=== PATIENT | female | born 1960 | race American Indian/Alaskan Native ===

== ENCOUNTER 2016-09-24 11:34 | Observation (INO) | payer BC ==
[2016-09-24 11:46] VITALS: BMI 40.6
--- NOTE | 2016-09-24 12:15 | C.PDOC ---
History Of Present Illness 56 year old patient, with a past medical history of hypertension, hypercholesterolemia, morbid obesity, and diabetes, presents to the ED complaining of chest pain that began earlier at work today. The pain is sharp and radiating to her left arm. Patient has a remote history of negative stress test. Patient denies fever, nausea, vomiting, shortness of breath, palpitations , numbness, weakness, or any other complaints. Time Seen by Provider: 09/24/16 11:52 Chief Complaint (Nursing): Chest Pain History Per: Patient History/Exam Limitations: no limitations Onset/Duration Of Symptoms: Hrs (this morning) Current Symptoms Are (Timing): Still Present Context: Other Severity: Mild Pain Scale Rating Of: 3 Quality: Sharp, "Pain" Modifying Factors: None Exacerbating Factors: None Alleviating Factors: None Recent travel outside of the [place]: No Past Medical History Reviewed: Historical Data, Nursing Documentation, Vital Signs Vital Signs: Last Vital Signs Temp 98.0 F 09/24/16 11:49 Pulse 78 09/24/16 11:49 Resp 20 09/24/16 11:49 BP 119/73 09/24/16 11:49 Pulse Ox 97 09/24/16 13:19 - Medical History PMH: HTN, Hypercholesterolemia Surgical History: Tonsillectomy Family History: States: Unknown Family Hx - Social History Hx Alcohol Use: Yes Hx Substance Use: No - Immunization History Hx Tetanus Toxoid Vaccination: No Hx Influenza Vaccination: Yes Hx Pneumococcal Vaccination: Yes Review Of Systems Except As Marked, All Systems Reviewed And Found Negative. Constitutional: Negative for: Fever Cardiovascular: Positive for: Chest Pain (radiating to left arm) Respiratory: Negative for: Shortness of Breath Gastrointestinal: Negative for: Nausea, Vomiting Neurological: Negative for: Weakness, Numbness Physical Exam - Physical Exam Appears: Non-toxic, No Acute Distress Skin: Warm, Dry Head: Atraumatic, Normacephalic Eye(s): bilateral: Normal Inspection, PERRL, EOMI Oral Mucosa: Moist Neck: Normal ROM, Supple Chest: Symmetrical, No Tenderness Cardiovascular: Rhythm Regular Respiratory: Normal Breath Sounds, No Rales, No Rhonchi, No Wheezing Gastrointestinal/Abdominal: Soft, No Tenderness, Other (morbidly obese) Back: Normal Inspection, No CVA Tenderness Extremity: Normal ROM Neurological/Psych: Oriented x3, Normal Speech, Normal Cognition, Normal Motor, Normal Sensation Gait: Steady ED Course And Treatment - Laboratory Results Result Diagrams: 09/24/16 12:23 09/24/16 12:23 O2 Sat by Pulse Oximetry: 97 (room air) Pulse Ox Interpretation: Normal - Other Rad chest x-ray X-Ray: Read By Radiologist (Shyam Jerome MD) Interpretation: PROCEDURE: CHEST RADIOGRAPH, 1 VIEW. HISTORY: chest pain. COMPARISON: None available. FINDINGS: LUNGS: Mild venous congestion. PLEURA : No pneumothorax or pleural fluid seen. CARDIOVASCULAR: Cardiomegaly. OSSEOUS STRUCTURES: No significant abnormalities. VISUALIZED UPPER ABDOMEN: Normal. OTHER FINDINGS: None. IMPRESSION: Mild venous congestion with cardiomegaly. Medical Decision Making Medical Decision Making: Impression: 56 y/o female with chest pain Plan: * EKG * Labs * Chest x-ray Progress: EKG (interpreted and viewed by me) Sinus Rhythm [address]-T wave changes Disposition - Disposition Disposition: HOSPITALIZED Disposition Time: 13:19 Condition: STABLE - Clinical Impression Clinical Impression: Chest pain - Scribe Statement The provider has reviewed the documentation as recorded by the Scribnicolasa Hope Provider Attestation: All medical record entries made by the Scribe were at my direction and personally dictated by me. I have reviewed the chart and agree that the record accurately reflects my personal performance of the history, physical exam, medical decision making, and the department course for this patient. I have also personally directed, reviewed, and agree with the discharge instructions and disposition. Decision To Admit - Pt Status Changed To: Hospital Disposition Of: Observation - . Bed Request Type: Telemetry Admitting Physician: Ivan Finney Patient Diagnosis: Chest pain
[2016-09-24 12:38] LABS: BASO # 0.1 K/uL (0.0-0.2); BASO % 0.8 % (0.0-2.0); EOS # 0.2 K/uL (0.0-0.7); EOS % 2.7 % (0.0-4.0); HEMATOCRIT 37.2 % (34.0-47.0); LYMPH # 2.3 K/uL (1.0-4.3); LYMPH % 29.9 % (20.0-40.0); MEAN CELL VOLUME 76.2 fL (81.0-99.0); MEAN CORPUSCULAR HEMOGLOBIN 24.8 pg (27.0-31.0); MEAN CORPUSCULAR HGB CONC 32.5 g/dL (33.0-37.0); MEAN PLATELET VOLUME 8.9 fL (7.2-11.7); MONO # 0.6 K/uL (0.0-0.8); MONO % 7.5 % (0.0-10.0); RED CELL DISTRIBUTION WIDTH 16.4 % (11.5-14.5); WHITE BLOOD COUNT 7.8 K/uL (4.8-10.8)
--- NOTE | 2016-09-24 12:44 | RAD ---
PROCEDURE: CHEST RADIOGRAPH, 1 VIEW HISTORY: chest pain COMPARISON: None available. FINDINGS: LUNGS: Mild venous congestion. PLEURA: No pneumothorax or pleural fluid seen. CARDIOVASCULAR: Cardiomegaly. OSSEOUS STRUCTURES: No significant abnormalities. VISUALIZED UPPER ABDOMEN: Normal. OTHER FINDINGS: None. IMPRESSION: Mild venous congestion with cardiomegaly.
[2016-09-24 12:45] LABS: CHLORIDE 101 mmol/L (98-107); INR 0.9; POTASSIUM 4.1 mmol/L (3.6-5.2); SODIUM 138 mmol/L (132-148)
[2016-09-24 12:47] LABS: AST/SGOT 25 U/L (14-36); BILIRUBIN,TOTAL 0.6 mg/dL (0.2-1.3); CARBON DIOXIDE 25 mmol/L (22-30); GFR AFRICAN-AMERICAN > 60
[2016-09-24 12:48] LABS: ALB/GLOB RATIO 1.3 (1.0-2.1); ALKALINE PHOSPHATASE 78 U/L (38-126); ALT/SGPT 26 U/L (9-52); BLOOD UREA NITROGEN 16 mg/dL (7-17); CALCIUM 9.2 mg/dl (8.6-10.4); GLUCOSE,RANDOM 196 mg/dL (65-105); TOTAL PROTEIN 7.7 g/dL (6.3-8.3)
[2016-09-24 14:13] LABS: RBC URINE 9 /hpf (0-3); URINE BACTERIA RARE (<OCC); URINE BILIRUBIN NEGATIVE (NEGATIVE); URINE BLOOD NEGATIVE (NEGATIVE); URINE COLOR Yellow (YELLOW); URINE GLUCOSE (UA) NORMAL (Normal); URINE KETONE NEGATIVE (NEGATIVE); URINE LEUKOCYTE ESTERASE 2+ Leu/uL (Negative); URINE PROTEIN NEGATIVE (NEGATIVE); URINE UROBILINOGEN NORMAL mg/dL (0.2-1.0); WBC URINE 3 /hpf (0-5)
[2016-09-24] MEDS: (Novolog) Insulin Aspart, Recombinant 100 u/ml 10 ml vial SC SCH ×2 (17:12→22:24)
--- NOTE | 2016-09-24 18:33 | CP.PCM.CON ---
History of Present Illness - History of Present Illness History of Present Illness: 56 year old lady with DM, HTN, Mixed hyperlipidemia, presented with atypical CP , no EKG changes, so far neg enz. observe unlikely PE or dissection clinically Review of Systems - Constitutional Constitutional: Weakness - EENT Eyes: absent: Discharge Ears: absent: Ear Discharge, Dizziness Nose/Mouth/Throat: absent: Epistaxis - Cardiovascular Cardiovascular: Chest Pain. absent: Acrocyanosis, Diaphoresis, Leg Edema, Palpitations, Syncope - Respiratory Respiratory: absent: Cough, Dyspnea, Hemoptysis - Gastrointestinal Gastrointestinal: absent: Abdominal Pain, Diarrhea, Vomiting - Genitourinary Genitourinary: absent: Change in Urinary Stream Past Patient History - Past Social History Smoking Status: Never Smoked - CARDIAC Hx Hypercholesterolemia: Yes Hx Hypertension: Yes - ENDOCRINE/METABOLIC Hx Diabetes Mellitus Type 2: Yes - GASTROINTESTINAL Hx Gastroesophageal Reflux: Yes - PSYCHIATRIC Hx Substance Use: No - SURGICAL HISTORY Hx Tonsillectomy: Yes - ANESTHESIA Hx Anesthesia: Yes Hx Anesthesia Reactions: No Meds Allergies/Adverse Reactions: Allergies Allergy/AdvReac Type Severity Reaction Status Date / Time No Known Allergies Allergy Verified 09/24/16 11:50 - Medications Medications: Current Medications Amlodipine Besylate (Norvasc) 10 mg PO DAILY [facility] Aspirin (Ecotrin) 81 mg PO DAILY [facility] Last Admin: 09/24/16 17:58 Dose: 81 mg Enoxaparin Sodium (Lovenox) 40 mg SC DAILY [facility] Insulin Aspart (Novolog) 0 unit SC ACHS [facility] PRN Reason: Protocol Last Admin: 09/24/16 17:12 Dose: Not Given Lisinopril (Zestril) 20 mg PO DAILY [facility] Last Admin: 09/24/16 17:58 Dose: 20 mg Metformin HCl (Glucophage) 500 mg PO BID [facility] Last Admin: 09/24/16 17:59 Dose: 500 mg Rosuvastatin Calcium (Crestor) 20 mg PO [facility] Physical Exam - Constitutional Appears: Non-toxic - Head Exam Head Exam: ATRAUMATIC - Eye Exam Eye Exam: EOMI - ENT Exam ENT Exam: Mucous Membranes Moist - Neck Exam Neck exam: Negative for: Lymphadenopathy, Thyromegaly - Respiratory Exam Respiratory Exam: Clear to Auscultation Bilateral. absent: Rales - Cardiovascular Exam Cardiovascular Exam: REGULAR RHYTHM. absent: Systolic Murmur - GI/Abdominal Exam GI & Abdominal Exam: Normal Bowel Sounds. absent: Organomegaly - Rectal Exam Rectal Exam: Deferred - Extremities Exam Extremities exam: Positive for: normal capillary refill. Negative for: calf tenderness - Neurological Exam Neurological exam: Alert, Oriented x3 - Psychiatric Exam Psychiatric exam: Normal Affect - Skin Skin Exam: Dry Results - Vital Signs Recent Vital Signs: Last Vital Signs Temp 97.6 F 09/24/16 18:22 Pulse 71 09/24/16 18:22 Resp 16 09/24/16 18:22 BP 155/84 H 09/24/16 18:22 Pulse Ox 99 09/24/16 18:22 - Labs Result Diagrams: 09/24/16 12:23 09/24/16 12:23 Labs: Laboratory Results - last 24 hr 09/24/16 09/24/16 14:00 17:00 POC Glucose (mg/dL) 140 H Urine Color Yellow Urine Clarity Hazy Urine pH 5.0 Ur Specific [place] 1.018 Urine Protein Negative Urine Glucose (UA) Normal Urine Ketones Negative Urine Blood Negative Urine Nitrate Negative Urine Bilirubin Negative Urine Urobilinogen Normal Ur Leukocyte Esterase 2+ H Urine WBC (Auto) 3 Urine RBC (Auto) 9 H Ur Squamous Epith Cells 5 Urine Bacteria Rare Urine HCG, Qual Negative Assessment & Plan (1) Diabetes 1.5, managed as type 2 Status: Acute Comment: r/o NH EST and Echo as out pt (2) Hypertension Status: Chronic (3) Mixed hyperlipidemia Status: Chronic (4) Chest pain Status: Chronic
[2016-09-24 19:28] VITALS: RESP 20; O2SAT 95
--- NOTE | 2016-09-24 23:08 | CP.PCM.HP ---
History of Present Illness - History of Present Illness History of Present Illness: Cheif complain: chest pain HPI: 56 year old patient, with a past medical history of hypertension, hypercholesterolemia, morbid obesity, and diabetes, presents to the ED complaining of chest pain that began earlier at work today. The pain is sharp and radiating to her left arm. Patient has a remote history of negative stress test. Patient denies fever, nausea, vomiting, shortness of breath, palpitations , numbness, weakness, or any other complaints. Present on Admission - Present on Admission Any Indicators Present on Admission: No Review of Systems - Review of Systems Systems not reviewed;Unavailable: Acuity of Condition - Constitutional Constitutional: Fatigue, Malaise, Weakness - EENT Eyes: absent: As Per HPI, Blind Spots, Blurred Vision, Change in Vision, Decreased Night Vision, Diplopia, Discharge, Dry Eye, Exophthalmos, Floaters, Irritation, Itchy Eyes, Loss of Peripheral Vision, Pain, Photophobia, Requires Corrective Lenses, Sees Flashes, Spots in Vision, Tunnel Vision, Other Visual Disturbances, Loss of Vision, Other Nose/Mouth/Throat: absent: As Per HPI, Epistaxis, Nasal Congestion, Nasal Discharge, Nasal Obstruction, Nasal Trauma, Nose Pain, Post Nasal Drip, Sinus Pain, Sinus Pressure, Bleeding Gums, Change in Voice, Dental Pain, Dry Mouth, Dysphagia, Halitosis, Hoarsness, Lip Swelling, Mouth Lesions, Mouth Pain, Odynophagia, Sore Throat, Throat Swelling, Tongue Swelling, Facial Pain, Neck Pain, Neck Mass, Other - Cardiovascular Cardiovascular: Chest Pain, Dyspnea on Exertion - Respiratory Respiratory: Cough, Dyspnea - Gastrointestinal Gastrointestinal: absent: As Per HPI, Abdominal Pain, Belching, Bloating, Change in Bowel Habits, Change in Stool Character, Coffee Ground Emesis, Constipation, Cramping, Diarrhea, Dyspepsia, Dysphagia, Early Satiety, Excessive Flatus, Fecal Incontinence, Heartburn, Hematemesis, Hematochezia, Loose Stools, Melena, Nausea, Odynophagia, Temesmus, Vomiting, Other - Genitourinary Genitourinary: absent: As Per HPI, Change in Urinary Stream, Difficulty Urinating, Dysuria, Flank Pain, Hematuria, Pyuria, Nocturia, Urinary Incontinence, Urinary Frequency, Urinary Hesitance, Urinary Urgency, Voiding Freq/Small Amts, Freq UTI, Hx Renal/Bladder Calculi, Hx /Renal Surgery, Bladder Distension, Other - Reproductive: Female Reproductive:Female: absent: As Per HPI, Amenorrhea, Amenorrhea/ Control, Currently Menstual, Cycle <21 Days, Cycle >35 Days, Cycle Variable, Menses 1-7 Days, Menses >/= 8 Days, Menses Variable, Cycle > 4 Weeks Between, No Menses for 6 Months, Heavy Menses, Light Menses, Normal Menses, Spotting Between Cycles , S/P Hysterectomy, Menopausal, Post Menopausal, Premenarche, Abnormal Vaginal Bleeding, Dysmenorrhea, Dyspareunia, Genital Lesions, Genital Pruritis, Pelvic Pain, Prolapse Symptoms, Sexual Dysfunction, Vaginal Discharge, Vaginal Dryness , Vaginal Odor, Vaginal Pruritis, Other - Menstruation Menstruation: absent: As Per HPI, Amenorrhea, Amenorrhea/ Control, Currently Menstual, Cycle <21 Days, Cycle >35 Days, Cycle Variable, Menses 1-7 Days, Menses >/= 8 Days, Menses Variable, Cycle > 4 Weeks Between, No Menses for 6 Months, Heavy Menses, Light Menses, Normal Menses, Spotting Between Cycles , S/P Hysterectomy, Menopausal, Post Menopausal, Premenarche, Abnormal Vaginal Bleeding, Dysmenorrhea, Other - Musculoskeletal Musculoskeletal: Back Pain, Muscle Weakness, Myalgias - Integumentary Integumentary: absent: As Per HPI, Acne, Alopecia, Bleeding Lesions, Change in Hair, Change in Nails, Change in Pigmentation, Changing Lesions, Dry Skin, Erythema, Furuncle, Hirsutism, Lesions, New Lesions, Non-Healing Lesions, Photosensitivity, Pruritus, Rash, Skin Pain, Skin Ulcer, Sores, Striae, Swelling , Unusual Bruising, Wounds, Jaundice, Other - Neurological Neurological: absent: As Per HPI, Abnormal Gait, Abnormal Hearing, Abnormal Movements, Abnormal Speech, Behavioral Changes, Burning Sensations, Confusion, Convulsions, Disequilibrium, Dizziness, Numbness, Focal Weakness, Frequent Falls , Headaches, Lack of Coordination, Loss of Vision, Memory Loss, Paresthesias, Radicular Pain, Restless Legs, Sensory Deficit, Syncope, Tingling, Tremor, Vertigo, Weakness, Other Visual Disturbances, Other Past Patient History - Past Social History Smoking Status: Never Smoked - CARDIAC Hx Hypercholesterolemia: Yes Hx Hypertension: Yes - ENDOCRINE/METABOLIC Hx Diabetes Mellitus Type 2: Yes - GASTROINTESTINAL Hx Gastroesophageal Reflux: Yes - PSYCHIATRIC Hx Substance Use: No - SURGICAL HISTORY Hx Tonsillectomy: Yes - ANESTHESIA Hx Anesthesia: Yes Hx Anesthesia Reactions: No Meds Allergies/Adverse Reactions: Allergies Allergy/AdvReac Type Severity Reaction Status Date / Time No Known Allergies Allergy Verified 09/24/16 11:50 Physical Exam - Constitutional Appears: No Acute Distress - Head Exam Head Exam: ATRAUMATIC, NORMAL INSPECTION, NORMOCEPHALIC - Eye Exam Eye Exam: Normal appearance, PERRL Pupil Exam: NORMAL ACCOMODATION - ENT Exam ENT Exam: Mucous Membranes Moist, Normal Exam - Respiratory Exam Respiratory Exam: Clear to Auscultation Bilateral, NORMAL BREATHING PATTERN - Cardiovascular Exam Cardiovascular Exam: REGULAR RHYTHM - GI/Abdominal Exam GI & Abdominal Exam: Normal Bowel Sounds, Soft. absent: Tenderness - Rectal Exam Rectal Exam: Deferred Results - Vital Signs Recent Vital Signs: Last Vital Signs Temp 97.7 F 09/24/16 19:27 Pulse 65 09/24/16 19:27 Resp 20 09/24/16 19:27 BP 147/74 09/24/16 19:27 Pulse Ox 95 09/24/16 19:27 - Labs Result Diagrams: 09/24/16 12:23 09/24/16 12:23 Labs: Laboratory Results - last 24 hr 09/24/16 09/24/16 09/24/16 14:00 17:00 20:48 POC Glucose (mg/dL) 140 H Total Creatine Kinase 81 CK-MB (Mass) 0.64 Troponin I, Quant < 0.0120 Urine Color Yellow Urine Clarity Hazy Urine pH 5.0 Ur Specific [place] 1.018 Urine Protein Negative Urine Glucose (UA) Normal Urine Ketones Negative Urine Blood Negative Urine Nitrate Negative Urine Bilirubin Negative Urine Urobilinogen Normal Ur Leukocyte Esterase 2+ H Urine WBC (Auto) 3 Urine RBC (Auto) 9 H Ur Squamous Epith Cells 5 Urine Bacteria Rare Urine HCG, Qual Negative 09/24/16 22:01 POC Glucose (mg/dL) 160 H Total Creatine Kinase CK-MB (Mass) Troponin I, Quant Urine Color Urine Clarity Urine pH Ur Specific [place] Urine Protein Urine Glucose (UA) Urine Ketones Urine Blood Urine Nitrate Urine Bilirubin Urine Urobilinogen Ur Leukocyte Esterase Urine WBC (Auto) Urine RBC (Auto) Ur Squamous Epith Cells Urine Bacteria Urine HCG, Qual Assessment & Plan (1) Diabetes 1.5, managed as type 2 Status: Acute (2) Chest pain Assessment and Plan: atypical CP, no EKG changes, so far neg enz. observe unlikely PE or dissection clinically Status: Chronic (3) Hypertension Status: Chronic (4) Mixed hyperlipidemia Status: Chronic
[2016-09-25 08:14] VITALS: BP 127/77; PULSE 68; TEMP 97.7
[2016-09-25] MEDS: (Novolog) Insulin Aspart, Recombinant 100 u/ml 10 ml vial SC SCH ×3 (08:48→12:46)
[2016-09-25] MEDS ORDERED: Enoxaparin 40 mg Syringe SC SCH (10:00)
--- NOTE | 2016-09-25 11:48 | CP.PCM.PN ---
Subjective - Date & Time of Evaluation Date of Evaluation: 09/25/16 Time of Evaluation: 12:00 - Subjective Subjective: No further chest pain, negative enzymes for AR, unlikely PE or dissection clinically. For stress test and echocardiogram as outpatient. Objective - Vital Signs/Intake and Output Vital Signs (last 24 hours): Temp Pulse Resp BP Pulse Ox 97.7 F 68 20 127/77 95 09/25/16 08:13 09/25/16 08:13 09/25/16 08:13 09/25/16 08:13 09/25/16 08:13 - Medications Medications: Current Medications Amlodipine Besylate (Norvasc) 10 mg PO DAILY [facility] Last Admin: 09/25/16 10:29 Dose: 10 mg Aspirin (Ecotrin) 81 mg PO DAILY [facility] Last Admin: 09/25/16 10:28 Dose: 81 mg Enoxaparin Sodium (Lovenox) 40 mg SC DAILY [facility] Last Admin: 09/25/16 10:29 Dose: 40 mg Insulin Aspart (Novolog) 0 unit SC [facility] PRN Reason: Protocol Last Admin: 09/25/16 08:48 Dose: 1 unit Lisinopril (Zestril) 20 mg PO DAILY [facility] Last Admin: 09/25/16 10:28 Dose: 20 mg Metformin HCl (Glucophage) 500 mg PO BID [facility] Last Admin: 09/25/16 10:28 Dose: 500 mg Rosuvastatin Calcium (Crestor) 20 mg PO HS [facility] Last Admin: 09/24/16 22:52 Dose: 20 mg Tramadol HCl (Ultram) 50 mg PO TID PRN PRN Reason: Pain, moderate (4-7) Last Admin: 09/24/16 22:52 Dose: 50 mg - Labs Labs: PT 10.3 SECONDS (9.7-12.2) 09/24/16 12:23 INR 0.9 09/24/16 12:23 APTT 28 SECONDS (21-34) 09/24/16 12:23 - Constitutional Appears: Non-toxic - Head Exam Head Exam: ATRAUMATIC - Eye Exam Eye Exam: EOMI - ENT Exam ENT Exam: Mucous Membranes Moist - Neck Exam Neck Exam: absent: Lymphadenopathy, Thyromegaly - Respiratory Exam Respiratory Exam: Clear to Ausculation Bilateral. absent: Rales - Cardiovascular Exam Cardiovascular Exam: REGULAR RHYTHM. absent: Murmur - GI/Abdominal Exam GI & Abdominal Exam: Normal Bowel Sounds. absent: Organomegaly - Rectal Exam Rectal Exam: Deferred - Extremities Exam Extremities Exam: Normal Capillary Refill. absent: Calf Tenderness - Neurological Exam Neurological Exam: Alert, Oriented x3 - Psychiatric Exam Psychiatric exam: Normal Mood - Skin Skin Exam: Dry Assessment and Plan (1) Diabetes 1.5, managed as type 2 Status: Acute (2) Hypertension Status: Chronic (3) Mixed hyperlipidemia Status: Chronic (4) Chest pain Status: Chronic
--- NOTE | 2016-09-25 17:16 | CP.PCM.PN ---
Subjective - Date & Time of Evaluation Date of Evaluation: 09/25/16 Time of Evaluation: 11:00 - Subjective Subjective: alert, orientedx3, no sob or chest pains, NAD. Objective - Vital Signs/Intake and Output Vital Signs (last 24 hours): Temp Pulse Resp BP Pulse Ox 97.7 F 68 20 127/77 95 09/25/16 08:13 09/25/16 08:13 09/25/16 08:13 09/25/16 08:13 09/25/16 08:13 Intake and Output: 09/25/16 09/25/16 06:59 18:59 Intake Total 750 Balance 750 - Labs Labs: PT 10.3 SECONDS (9.7-12.2) 09/24/16 12:23 INR 0.9 09/24/16 12:23 APTT 28 SECONDS (21-34) 09/24/16 12:23 Assessment and Plan - Assessment and Plan (Free Text) Assessment: Seen and examined. Alert and orientedx3, denies sob or chest pains, cardiac enzymes negativex3, cleared by DR Guillory. D/W DR Finney, discharge plan to home for today. Advised to follow up in the office in 1 week.
--- NOTE | 2016-09-26 08:03 | CARD ---
APPROVED REPORT EXAM: Two-dimensional and M-mode echocardiogram with Doppler and color Doppler. Other Information Quality : GoodRhythm : NSR INDICATION MORBID OBESITY RISK FACTORS Hypertension Obesity Hyperlipidemia M-Mode DIMENSIONS RVDd2.39 (2.1-3.2cm)Left Atrium (MM)4.30 (2.5-4.0cm) IVSd1.08 (0.7-1.1cm)Aortic Root2.88 (2.2-3.7cm) LVDd5.17 (4.0-5.6cm)Aortic Cusp Exc.2.08 (1.5-2.0cm) PWd1.11 (0.7-1.1cm)FS (%) 45 % LVDs2.85 (2.0-3.8cm)LVEF (%)76 (>50%) Mitral Valve MV E Gircggsg10.5cm/sMV A Raggkbfw36.2cm/sE/A ratio0.6 TDI E/Lateral E'0.0E/Medial E'0.0 Tricuspid Valve TR Peak [id number]/sTR Peak [id number] LEFT VENTRICLE The left ventricle is normal size. There is normal left ventricular wall thickness. The left ventricular function is normal. The left ventricular ejection fraction is within the normal range. The Ejection Fraction is >55%. No regional wall motion abnormalities noted. The left ventricular diastolic function is normal. No left ventricle thrombus noted on this study. There is no ventricular septal defect visualized. There is no left ventricular aneurysm. There is no mass noted in the left ventricle. RIGHT VENTRICLE The right ventricle is normal size. There is normal right ventricular wall thickness. The right ventricular systolic function is normal. ATRIA The left atrium is moderately dilated. The right atrium size is normal. The interatrial septum is intact with no evidence for an atrial septal defect. AORTIC VALVE The aortic valve is normal in structure and function. No aortic regurgitation is present. There is no aortic valvular stenosis. There is no aortic valvular vegetation. MITRAL VALVE The mitral valve is normal in structure and function. There is no evidence of mitral valve prolapse. There is no mitral valve stenosis. There is no mitral valve regurgitation noted. TRICUSPID VALVE The tricuspid valve is normal in structure and function. There is mild to moderate tricuspid regurgitation. Right ventricular systolic pressure is estimated at 30-40 mmHg. There is no tricuspid valve prolapse or vegetation. There is no tricuspid valve stenosis. PULMONIC VALVE The pulmonary valve is normal in structure and function. There is no pulmonic valvular regurgitation. There is no pulmonic valvular stenosis. GREAT VESSELS The aortic root is normal in size. The ascending aorta is normal in size. The pulmonary artery is normal. The IVC is normal in size and collapses >50% with inspiration. PERICARDIAL EFFUSION The pericardium appears normal. There is no pleural effusion. <Conclusion> The left ventricular ejection fraction is within the normal range. The Ejection Fraction is >55%. The left atrium is moderately dilated.
--- NOTE | 2016-09-26 08:54 | CARD ---
APPROVED REPORT EKG Measurement Heart [id number] <Conclusion> Normal sinus rhythm Left anterior fascicular block Abnormal ECG
== END 2016-09-25 15:50 | disposition home or self-care (01) ==
LOC: C.ER 11:34 → C.9E 13:18 → C.5T 18:08
PROVIDERS: ADMIT Internal Medicine; ATTEND Internal Medicine
DX: R07.9 Chest pain, unspecified (principal); E11.9 Type 2 diabetes mellitus without complications; E78.2 Mixed hyperlipidemia; I10 Essential (primary) hypertension; E66.01 Morbid (severe) obesity due to excess calories; Z68.41 Body mass index [BMI] 40.0-44.9, adult
CPT/HCPCS: 36415; 71010; 80053; 81001; 82948; 84484; 84703; 85025; 85610; 85730; 93005; 93306; 96372; 99283; G0378; J1650